=== PATIENT | female | born 2000 | race Caucasian/White ===

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

== ENCOUNTER → 2021-07-15 | Outpatient (CLI) | payer OTHER ==
--- NOTE | 2021-07-15 08:31 | RAD ---
EXAM: Left ankle sonogram. HISTORY: Pain and swelling status post fall. TECHNIQUE: Sonographic imaging of the left ankle the site of concern was performed. COMPARISON: None. FINDINGS: There is soft tissue edema within the lateral left ankle superficial soft tissues at the si te of palpable concern. No mass, hematoma or abscess is seen. IMPRESSION: Lateral left ankle soft tissue edema. Cross-sectional imaging may be indicated if there i s concern for sonographically occult lesion. Electronically signed by: Nan Ferraro MD (07/15/2021 8:29 AM) [id number]
== END ==
LOC: US 07:41
PROVIDERS: ATTEND Nurse Practitioner Adult Health
DX: R60.0 Localized edema (principal); M79.662 Pain in left lower leg; D51.9 Vitamin B12 deficiency anemia, unspecified
CPT/HCPCS: 76881

== ENCOUNTER → 2021-08-13 | Outpatient (CLI) | payer OTHER ==
--- NOTE | 2021-08-13 17:50 | RAD ---
Ultrasound of the left lateral ankle soft tissues 08/13/2021 CLINICAL HISTORY: Left ankle lump for 8 months. TECHNIQUE: A real-time ultrasound examination of the soft tissues of the left lateral ankle in the ar ea of the patient's lump was performed. Multiple images were obtained. FINDINGS: Comparison study is dated 07/15/2021. Normal-appearing fat is seen within the subcutaneous soft tissues of the lateral left ankle. The lane a seen on the previous examination has resolved. No abnormal soft tissue mass or fluid collection is seen. IMPRESSION: No abnormal soft tissue mass or fluid collection is seen. Electronically signed by: Roger Molina MD (08/13/2021 5:47 PM) [id number]
== END ==
LOC: US 09:45
PROVIDERS: ATTEND Nurse Practitioner Adult Health
DX: M70.872 Other soft tissue disorders related to use, overuse and pressure, left ankle and foot (principal)
CPT/HCPCS: 76881